=== PATIENT | female | born 1970 | race Caucasian/White ===

== ENCOUNTER 2017-12-15 18:57 | Outpatient (REF) | payer OTHER, SELFPAY | END 2017-12-15 19:17 | LOC: NCHCN 18:57 | PROVIDERS: PCP Physician Assistant Medical; Referring Provider Nurse Practitioner Family; Visit Provider Nurse Practitioner Family | DX: N39.0 Urinary tract infection, site not specified (principal) | CPT/HCPCS: 87077; 87086; 87186 ==

== ENCOUNTER 2019-07-12 09:42 | Outpatient (REF) | payer OTHER, SELFPAY ==
[2019-07-12 19:05] LABS: Anion Gap 8.9 mmol/L (3-11); BUN 15 mg/dL (7-18); CO2 31.1 mmol/L (21.0-32.0); CREATININE 0.85 mg/dL (0.55-1.02); Calcium 8.9 mg/dL (8.5-10.1); Calculated LDL 130 mg/dL (<100); Chloride 98 mmol/L (98-107); Cholesterol 182 mg/dL (<200); Glucose 84 mg/dL (74-106); HDL Cholesterol 31 mg/dL (40-60); Potassium 3.8 mmol/L (3.5-5.1); Sodium 138 mmol/L (136-145); TSH 4.48 uIU/mL (0.36-3.74); Triglyceride 109 mg/dL (<150)
== END 2019-07-12 10:02 ==
LOC: NCHCN 09:42
PROVIDERS: PCP Physician Assistant Medical; Visit Provider Internal Medicine
DX: Z00.00 Encounter for general adult medical examination without abnormal findings (principal); Z13.29 Encounter for screening for other suspected endocrine disorder; Z13.220 Encounter for screening for lipoid disorders; Z13.228 Encounter for screening for other metabolic disorders
CPT/HCPCS: 80048; 80061; 84443

== ENCOUNTER 2019-09-19 20:21 | Outpatient (REF) | payer OTHER, SELFPAY ==
[2019-09-19 19:26] LABS: TSH 2.99 uIU/mL (0.36-3.74)
== END 2019-09-19 20:41 ==
LOC: NCHCN 20:21
PROVIDERS: PCP Physician Assistant Medical; Visit Provider Internal Medicine
DX: E04.0 Nontoxic diffuse goiter (principal)
CPT/HCPCS: 84443

== ENCOUNTER 2019-11-01 09:49 | Outpatient (REF) | payer OTHER, SELFPAY ==
[2019-11-03 09:36] LABS: Thyroglobulin Antibody 192 U/mL (<=60); Thyroperoxidase Antibody >1300 U/mL (<=60)
[2019-11-04 08:52] LABS: TSH 1.81 uIU/mL (0.36-3.74)
== END 2019-11-01 10:09 ==
LOC: NCHCN 09:49
PROVIDERS: PCP Physician Assistant Medical; Visit Provider Internal Medicine
DX: E04.1 Nontoxic single thyroid nodule (principal)
CPT/HCPCS: 86376; 84443

== ENCOUNTER 2019-11-28 14:35 | Outpatient (REF) | payer OTHER, SELFPAY ==
[2019-11-28 20:24] LABS: CREATININE 0.77 mg/dL (0.55-1.02)
== END 2019-11-28 14:55 ==
LOC: NCHCN 14:35
PROVIDERS: PCP Physician Assistant Medical; Visit Provider Internal Medicine
DX: I10 Essential (primary) hypertension (principal)
CPT/HCPCS: 82565

== ENCOUNTER 2020-01-03 13:46 | Outpatient (REF) | payer OTHER, SELFPAY ==
[2020-01-04 15:43] LABS: TSH 2.14 uIU/mL (0.36-3.74)
== END 2020-01-03 14:06 ==
LOC: NCHCN 13:46
PROVIDERS: PCP Physician Assistant Medical; Visit Provider Internal Medicine
DX: E04.0 Nontoxic diffuse goiter (principal); E04.1 Nontoxic single thyroid nodule
CPT/HCPCS: 84443

== ENCOUNTER 2020-02-16 22:06 | Outpatient (REF) | payer OTHER, SELFPAY ==
[2020-02-16 21:45] LABS: TSH 2.27 uIU/mL (0.36-3.74)
== END 2020-02-16 22:26 ==
LOC: NCHCN 22:06
PROVIDERS: PCP Physician Assistant Medical; Visit Provider Internal Medicine
DX: E04.0 Nontoxic diffuse goiter (principal); E04.1 Nontoxic single thyroid nodule
CPT/HCPCS: 84443

== ENCOUNTER 2020-02-27 20:17 | Outpatient (REF) | payer OTHER, SELFPAY ==
[2020-02-29 16:01] LABS: Patient Race White; SARS-CoV-2 RNA Undetected (Undetected); SARS-CoV-2 Specimen Source Nasal
== END 2020-02-27 20:37 ==
LOC: NCHCN 20:17
PROVIDERS: PCP Physician Assistant Medical; Visit Provider Nurse Practitioner Family
DX: Z11.59 Encounter for screening for other viral diseases (principal)
CPT/HCPCS: U0003

== ENCOUNTER 2020-03-19 19:19 | Outpatient (REF) | payer OTHER, SELFPAY ==
[2020-03-22 00:37] LABS: COVID-19 RT-PCR Result NEGATIVE (Negative)
== END 2020-03-19 19:39 ==
LOC: NCHCN 19:19
PROVIDERS: PCP Physician Assistant Medical; Visit Provider Nurse Practitioner Family
DX: Z11.59 Encounter for screening for other viral diseases (principal)
CPT/HCPCS: U0003

== ENCOUNTER 2020-04-09 15:05 | Outpatient (REF) | payer OTHER, SELFPAY ==
[2020-04-09 15:41] LABS: TSH 0.11 uIU/mL (0.36-3.74)
== END 2020-04-09 15:25 ==
LOC: NCHCN 15:05
PROVIDERS: PCP Physician Assistant Medical; Visit Provider Internal Medicine
DX: E04.1 Nontoxic single thyroid nodule (principal)
CPT/HCPCS: 84443

== ENCOUNTER 2020-05-21 20:54 | Outpatient (REF) | payer OTHER, SELFPAY ==
[2020-05-21 16:39] LABS: TSH 0.31 uIU/mL (0.36-3.74)
== END 2020-05-21 20:55 | disposition home or self-care (01) ==
LOC: NCHCN 20:54
PROVIDERS: PCP Physician Assistant Medical; Visit Provider Internal Medicine
DX: E04.1 Nontoxic single thyroid nodule (principal); E04.0 Nontoxic diffuse goiter
CPT/HCPCS: 84443

== ENCOUNTER 2020-07-05 15:23 | Outpatient (REF) | payer OTHER, SELFPAY ==
--- NOTE | 2020-07-05 15:00 | SKI_PTH ---
PATIENT: Muriel Mesa LOC: [facility] U#:[id number] AGE/SX: 49/F ROOM: RE07/05/[address]: Enoch Jones : 1970 BED: DIS: 07/05/2020 SPEC #: [id number] RECD: 07/05/20 17:57 STATUS: EULOGIO DURANT #: [id number] DOLLY: 07/05/20 15:[address]: Enoch Jones DEPT: Surgical Specimen RECD BY: Rupal Berman ENTERED: 07/05/20 17:57 SP TYPE: ALMA WALTER DR: Lizeth Wells Tissues: 1 - SKIN BIOPSY(SHAVE/PUNCH) Procedures: SKIN LEVEL 4 Comments: [id number]
== END 2020-07-05 15:24 | disposition home or self-care (01) ==
LOC: NCHCN 15:23
PROVIDERS: PCP Physician Assistant Medical; Visit Provider Internal Medicine
DX: L82.0 Inflamed seborrheic keratosis (principal); D18.01 Hemangioma of skin and subcutaneous tissue
CPT/HCPCS: 88305

== ENCOUNTER 2021-04-08 18:13 | Outpatient (REF) | payer OTHER, SELFPAY ==
[2021-04-08 21:16] LABS: Anion Gap 6.3 mmol/L (3-11); BUN 10 mg/dL (7-18); CO2 30.7 mmol/L (21.0-32.0); CREATININE 0.7 mg/dL (0.55-1.02); Calcium 8.8 mg/dL (8.5-10.1); Chloride 102 mmol/L (98-107); FREE T4 1.17 ng/dL (0.76-1.46); Glucose 90 mg/dL (74-106); Potassium 3.8 mmol/L (3.5-5.1); Sodium 139 mmol/L (136-145); TSH 1.05 uIU/mL (0.36-3.74)
== END 2021-04-08 18:14 | disposition home or self-care (01) ==
LOC: NCHCN 18:13
PROVIDERS: PCP Physician Assistant Medical; Visit Provider Internal Medicine
DX: I10 Essential (primary) hypertension (principal); E04.1 Nontoxic single thyroid nodule
CPT/HCPCS: 80048; 84439; 84443

== ENCOUNTER 2021-11-21 15:48 | Outpatient (REF) | payer OTHER, SELFPAY ==
[2021-11-21 20:04] LABS: Uric Acid 4.9 mg/dL (2.6-6.0)
== END 2021-11-21 15:49 | disposition home or self-care (01) ==
LOC: NCHCN 15:48
PROVIDERS: PCP Physician Assistant Medical; Visit Provider Nurse Practitioner Family
DX: M25.571 Pain in right ankle and joints of right foot (principal)
CPT/HCPCS: 84550

== ENCOUNTER 2022-04-16 21:18 | Outpatient (REF) | payer BC, SELFPAY ==
[2022-04-16 22:09] LABS: Anion Gap 3.4 mmol/L (3-11); BUN 12 mg/dL (7-18); CO2 31.6 mmol/L (21.0-32.0); CREATININE 0.8 mg/dL (0.55-1.02); Calcium 9.5 mg/dL (8.5-10.1); Chloride 102 mmol/L (98-107); Estimated GFR 89.71 (mL/min/1.73m2); Glucose 90 mg/dL (74-106); Potassium 3.9 mmol/L (3.5-5.1); Sodium 137 mmol/L (136-145); TSH 1.23 uIU/mL (0.36-3.74)
== END 2022-04-16 21:19 | disposition home or self-care (01) ==
LOC: NCHCN 21:18
PROVIDERS: PCP Physician Assistant Medical; Visit Provider Nurse Practitioner Family
DX: Z00.00 Encounter for general adult medical examination without abnormal findings (principal)
CPT/HCPCS: 80048; 84443

== ENCOUNTER 2023-05-04 11:51 | Outpatient (REF) | payer BC, SELFPAY ==
[2023-05-04 19:47] LABS: Anion Gap 6.9 mmol/L (3-11); BUN 12 mg/dL (7-18); CO2 32.1 mmol/L (21.0-32.0); CREATININE 0.8 mg/dL (0.55-1.02); Calcium 9.4 mg/dL (8.5-10.1); Calculated LDL 140 mg/dL (<100); Chloride 102 mmol/L (98-107); Cholesterol 207 mg/dL (<200); Estimated GFR 89.15 (mL/min/1.73m2); Glucose 89 mg/dL (74-106); HDL Cholesterol 44 mg/dL (40-60); Potassium 4.2 mmol/L (3.5-5.1); Sodium 141 mmol/L (136-145); TSH 2.11 uIU/mL (0.36-3.74); Triglyceride 115 mg/dL (<150)
== END 2023-05-04 11:52 | disposition home or self-care (01) ==
LOC: NCHCN 11:51
PROVIDERS: PCP Physician Assistant Medical; Visit Provider Internal Medicine
DX: I10 Essential (primary) hypertension (principal); E06.3 Autoimmune thyroiditis
CPT/HCPCS: 80048; 80061; 84443

== ENCOUNTER 2023-12-18 06:09 | Day surgery (SDC) | payer BC, SELFPAY ==
--- NOTE | 2023-12-17 13:53 | W.PM.DSUDISC ---
Date of service: 12/18/23 Time of Service: 08:01 Discharge Plan Disposition Patient Disposition: Home Condition: Good Discharge Details Reason For Visit: screening colonoscopy Attending Provider: Rio Hodge Primary Care Provider: Lizeth Wells Home Meds and New Rx's Prescriptions: Continued chlordiazepoxide-clidinium 5-2.5 mg capsule 1 cap PO TID PRN levothyroxine 112 mcg capsule 112 mcg PO HS losartan-hydrochlorothiazide 50-12.5 mg tablet 1 tab PO HS omeprazole 20 mg capsule,delayed release(DR/EC) 20 mg PO HS Discontinued bisacodyl [Dulcolax (bisacodyl)] 5 mg tablet,delayed release (DR/EC) 5 mg PO ONCE Qty: 4 0RF Rx Instructions: Take per colonoscopy instructions provided by ordering providers office polyethylene glycol 3350 17 gram/dose powder 17 g PO ONCE Qty: 238 0RF Rx Instructions: Take per colonoscopy instructions provided by ordering providers office Discharge Instructions Instructions: Colon polyps, Diverticulosis Additional Instructions: Brady, we were able to complete your colonoscopy today without any difficulty. I hope you are comfortable. Your prep was excellent and I could see everything fine. I did find and remove 1 polyp today. I am optimistic that this will be a hyperplastic polyp, which is really no significant risk at all, but to be safe, I will have the pathologist review it. Incidentally, you have a little bit of diverticulosis as well. Diverticula are weak spots in the muscular part of the colon wall. They typically accumulate as we get older. Maintaining a diet that is rich in fiber, staying well-hydrated, and avoiding constipation are probably the best strategies to help reduce any issues with them. I have attached a little bit of information here about: Rectal polyps, as well as diverticulosis. The office should get the report on the polyp analysis in the next week or 2, and once we have those, they will be in touch with any other recommendations. If you have any questions in the meantime, please do not hesitate to call 1. If tolerated, consume a soft, low fiber diet for 1-2 days. 2[address] Do not drive, drink alcohol, operate machinery, make critical decisions, or do activities that require coordination or balance for 24 hours. 3. Because air was put into your colon during the procedure, expelling air from your rectum (passing gas or farting) is normal. 4. You may not have a bowel movement for 1-3 days because of the colonoscopy prep. This is normal. 5. Go directly to the emergency room if you notice any of the following: Develop chills (warm to touch), or if you have a thermometer and your temperature is above 101 Difficulty breathing or difficultly swallowing Persistent vomiting Severe abdominal pain, other than gas cramps Severe chest pain Black, tarry stools Any bleeding ? exceeding one tablespoon 6. Call your physician if the site where your intravenous was started becomes red, swollen, painful, and warm to touch. 7. Your physician has reviewed your pre-procedure medications. Please continue to take those medications as previously ordered. You will be given specific information/education regarding any changes to your medications before leaving. Activity:: Activity as Tolerated Diet:: As Tolerated Discharge Orders Discharge Orders: Discharge Order (Routine); Ordered 12/17/23 Ordered By: Rio Hodge DS: Diagnosis Discharge Diagnosis (1) Encounter for screening colonoscopy: Status: Acute Asessment and Plan: Follow-up on polypectomy results
--- NOTE | 2023-12-17 13:55 | W.COLOREPORT ---
Date of service: 12/18/23 Time of Service: 08:09 Colonoscopy Report Date of procedure: 12/18/23 Pre-op diagnosis general: screening colonoscopy Post-op diagnosis procedure note: other (Rectal polyp, diverticulosis) Procedure: colonoscopy with polypectomy Surgeon: Rio Hodge Anesthesia Type: General:No Airway Estimated blood loss (mL): 5 Pathology: other (0.5 cm pedunculated rectal polyp) Complications: None Disposition: same day Indications: Muriel is a 53 year old woman who needs a screening colonoscopy Prep: Miralax/Dulcolax Procedure Start Time: 07:30 Procedure End Time: 07:53 Retraction Time: 8 Findings: Sigmoid diverticulosis, 0.5 cm rectal polyp Procedure Description: After the induction of anesthesia, and with the patient in left lateral decubitus position, I began by performing an external anorectal exam.? Perineum and skin were normal, as was the anal verge.? There was no evidence of external hemorrhoids.? Next, I performed a digital rectal exam.? I did not appreciate any abnormal findings.? Next, I advanced a colonoscope into the rectal vault.? I performed retroflexion.? This appeared normal.? There was a 0.5 cm rectal polyp, mostly in the midportion of the rectum. I removed this in piecemeal with cold forceps. Resection was complete, there was minimal bleeding. Using insufflation, I then advanced the colonoscope beyond the rectal folds and into the sigmoid colon before advancing towards the cecum.? The quality of the prep was excellent.? There was some sigmoid diverticulosis the scope was noted to be in the cecum by identification of the ileocecal valve and appendiceal orifice.? I then began withdrawing the colonoscope using repeated irrigation as necessary for full evaluation of the colonic mucosa. ?Once the scope was withdrawn to the level of the rectum, great care was taken to examine portions of the rectal folds.? Finally, the scope was withdrawn and the patient was brought to the same-day surgery recovery unit as the anesthetic wore off. ?The findings and instructions were shared with the patient prior to discharge. [place] Bowel Prep [place] Bowel Prep Right Colon: 3 Left Colon: 3 Transverse Colon: 3 Total Score: 9
[2023-12-18 06:37] VITALS: BP 138/95; PULSE 82; RESP 18; TEMP 36.8; O2SAT 100
[2023-12-18] MEDS: Lactated Ringers 1,000 ML 80 ML IV (06:55)
--- NOTE | 2023-12-18 07:14 | W.ANESPRE ---
General Info Date of Service Date Performed: 12/18/23 Height: 5 ft 2.5 in Weight: 68.5 kg Body Mass Index (BMI): 27.1 Surgical Procedure: Operation Date: 12/18/23 07:35 Proposed Procedure Side Surgeon p Colonoscopy Rio Hodge MD Actual Procedure Side Surgeon p Colonoscopy Not Applicable Rio Hodge MD Pre-Op Diagnosis Post-Op Diagnosis screening colonoscopy Meds Allergies and Home Medications Allergies Allergy/AdvReac Type Severity Reaction Status Date / Time amoxicillin (From Augmentin) Allergy Intermediate Hives Verified 12/18/23 06:32 clavulanic acid (From Allergy Intermediate Hives Verified 12/18/23 06:32 Augmentin) sulfasalazine Allergy Intermediate Hives Verified 12/18/23 06:32 Home Medication ?Medication ?Instructions ?Recorded chlordiazepoxide-clidinium 5 1 cap PO TID PRN 11/03/23 mg-2.5 mg capsule levothyroxine 112 mcg capsule 112 mcg PO HS 11/03/23 losartan 50 mg-hydrochlorothiazide 1 tab PO HS 11/03/23 12.5 mg tablet omeprazole 20 mg capsule,delayed 20 mg PO HS 11/03/23 release Current Visit Medications: Current Medications Generic Name Dose Route Start Last Admin Trade Name Freq PRN Reason Stop Dose Admin Ringer's Solution 1,000 mls @ 80 mls/hr 12/18/23 06:00 12/18/23 06:55 IV 12/18/23 23:59 80 mls/hr INFUSION ESTHER Administration IV Miscellaneous Supplies 1 each 12/18/23 06:00 Iv Access IV 12/18/23 23:59 DIRECTED ESTHER Ondansetron HCl 4 mg 12/17/23 13:56 Ondansetron 4 Mg/2 Ml Vial IVP 01/16/24 13:55 Q4H PRN PRN Nausea / Vomiting Sodium Chloride 0 ml 12/18/23 06:00 Normal Saline Flush 10 Ml Syr IV 12/18/23 23:59 PRN PRN Sodium Chloride 0 ml 12/18/23 06:00 Normal Saline 10 Ml Vial IJ 12/18/23 23:59 DIRECTED PRN Sterile Water 0 ml 12/18/23 06:00 Water,Injection,Sterile 10 Ml Vial IJ 12/18/23 23:59 DIRECTED PRN PFSH Active Problems Active Problems: Problem Status Onset Code Encounter for screening colonoscopy Acute Z12.11 Essential hypertension Acute I10 Overweight Acute E66.3 Autoimmune thyroiditis Acute E06.3 Medical History Medical History Crohn's disease of large bowel Onychomycosis due to dermatophyte Surgical History Surgical History Hx of appendectomy Hx of cholecystectomy Hx of hysterectomy Tobacco Smoking/Tobacco Use Status: Current every day Tobacco Type: e-cigarettes Alcohol Alcohol Intake: current Alcohol intake frequency: a few times a week Alcohol type: wine and hard liquor Substance Use Substance use: Never Substance use type: does not use Vital Signs and Lab Results Vital Signs Most Recent Vital Signs in EMR: Most Recent Vital Signs Temp Pulse Resp BP Pulse Ox 36.8 C 82 18 138/95 H 100 12/18/23 06:37 12/18/23 06:37 12/18/23 06:37 12/18/23 06:37 12/18/23 06:37 Lab Results Blood Type / Crossmatch: No Data to Display Complete Blood Count: No Data to Display Complete Metabolic Panel: No Data to Display Liver Function Panel: No Data to Display Coagulation Panel: No Data to Display Cardiac Panel: No Data to Display Arterial Blood Gas: No Data to Display Venous Blood Gas: No Data to Display Pancreas Panel: No Data to Display Thyroid Panel: No Data to Display Infectious Disease: No Data to Display Blood Cultures: No Data to Display Toxicology Panel: No Data to Display Panel: No Data to Display Anesthesia Assessment and Plan Anesthesia History Personal History: No History of Anesthesia Complications Family History: No Family History of Anesthesia Complications Exercise Tolerance Exercise Tolerance: Metabolic Equivalents>4 Pertinent Negatives Pertinent Negatives: No Symptoms of GERD Cardiac & Pulmonary Exam Cardiac Exam: Normal S1/S2 Heart Sounds Pulmonary Exam: Clear Bilateral Breath Sounds Implantable Cardiac Device Does patient have a Pacemaker or an ICD?: No Airway Exam Known Difficult Airway: No Mallampati Class: 2 Mouth Opening: Normal (> 3cm) Thyromental Distance: Less than 3 cm Neck Range of Motion: Full ROM Neck Circumference: Normal Teeth Condition: Normal Dentition ASA Classification ASA Score: ASA 2 Emergency Case?: No NPO Status NPO Status: NPO Clears >2 hours, Solids >8 hours Status Status: Negative HCG Anesthesia Plan Resuscitation Status: Full Code Anesthesia Technique: General Anesthesia Airway Planned: Natural Airway Monitors Used: Standard Monitors
[2023-12-18 07:17] VITALS: BMI 27.1
--- NOTE | 2023-12-18 07:35 | BOWEL_PTH ---
PATIENT: Muriel Mesa LOC: [facility] U#:[id number] AGE/SX: 53/F ROOM: RE12/18/[address]: Rio Hodge MD : 1970 BED: DIS: 12/18/2023 SPEC #: [id number] RECD: 12/18/23 12:23 STATUS: EULOGIO REQ #: [id number] DOLLY: 12/18/23 07:[address]: Rio Hodge DEPT: Surgical Specimen RECD BY: Rupal Berman ENTERED: 12/18/23 12:25 SP TYPE: Bowel OTHR DR: Lizeth Wells Tissues: 1 - BIOPSY BOWEL Procedures: GROSS AND MICRO LEVEL 4 Comments: [id number]
[2023-12-18 08:02] VITALS: BP 100/67; PULSE 74; RESP 16; TEMP 36.2; O2SAT 96
[2023-12-18 08:27] VITALS: BP 116/74; PULSE 65; RESP 16; TEMP 36.2; O2SAT 99
--- NOTE | 2023-12-18 08:36 | W.ANESPOSTOP ---
Postoperative Evaluation Date, Time and Location Date Performed: 12/18/23 Time Performed: 08:18 Patient Location: Day Surgery Unit Vital Signs Most Recent Imported Vital Signs: Most Recent Vital Signs Temp Pulse Resp BP Pulse Ox 36.2 C L 65 16 116/74 99 12/18/23 08:27 12/18/23 08:27 12/18/23 08:27 12/18/23 08:27 12/18/23 08:27 Pain Score Most Recent Pain Score: Most Recent Pain Score Pain Level 0 12/18/23 08:27 Assessment Mental Status: Awake (Alert & Oriented to Patient Baseline) Airway and Respiratory Function: Patent airway with normal (patient baseline) respiratory exam Cardiovascular Function: Hemodynamically Stable Hydration Status: Adequately Hydrated Nausea & Vomiting: No Nausea or Vomiting Pain: Pt. Denies Any Pain Peripheral Nerve Block: Patient did not receive a nerve block
== END 2023-12-18 08:40 | disposition home or self-care (01) ==
LOC: SUR 06:09
PROVIDERS: PCP Physician Assistant Medical; Visit Provider Surgery
PROC: 0DJD8ZZ Inspection of Lower Intestinal Tract, Via Natural or Artificial Opening Endoscopic (ICD-10-PCS; CPT 45378; principal; 2023-12-18 07:30)
DX: Z12.11 Encounter for screening for malignant neoplasm of colon (principal); K62.1 Rectal polyp; K57.30 Diverticulosis of large intestine without perforation or abscess without bleeding
CPT/HCPCS: 45380; 88305; J2704

== ENCOUNTER 2024-05-12 11:20 | Outpatient (REF) | payer OTHER, SELFPAY ==
[2024-05-12 20:21] LABS: Anion Gap 3.7 mmol/L (3-11); BUN 13 mg/dL (7-18); CO2 33.3 mmol/L (21.0-32.0); CREATININE 0.7 mg/dL (0.55-1.02); Calcium 8.7 mg/dL (8.5-10.1); Calculated LDL 98 mg/dL (<100); Chloride 108 mmol/L (98-107); Cholesterol 166 mg/dL (<200); Glucose 92 mg/dL (74-106); HDL Cholesterol 43 mg/dL (40-60); Potassium 3.8 mmol/L (3.5-5.1); Sodium 145 mmol/L (136-145); TSH 2.64 uIU/mL (0.36-3.74); Triglyceride 129 mg/dL (<150)
== END 2024-05-12 11:21 | disposition home or self-care (01) ==
LOC: NCHCN 11:20
PROVIDERS: PCP Physician Assistant Medical; Visit Provider Internal Medicine
DX: I10 Essential (primary) hypertension (principal); E03.9 Hypothyroidism, unspecified
CPT/HCPCS: 80048; 80061; 84443